=== PATIENT | female | born 1970 ===

== ENCOUNTER → 2021-05-10 | Day surgery (SDC) | payer OTHER ==
[~2021-05-10] MED LIST: ACETAMINOPHEN325 M1 PO; AMPICILLIN SOD 1 GM/NS 50ML 50 ML IV ONE; FISH OIL 1,0001 EAC2 PO; FLONASE ALLERG9.9 ML INH; GENTAMICIN 80MG/NS 100 ML 100 ML IV ONE; METOPROLOL SUCC25 MG PO; MULTI-VITAMIN1 EACH PO; PROAIR HFA INH8.5 GM INH; PROBIOTIC & AC1 EACH PO; SODIUM CHLORIDE 0.9% 50ML 0 ML ONE; VALTREX500 MG PO; ZYRTEC10 M3 PO
[2021-05-10 14:15] VITALS: BP 98/60
== END | disposition home or self-care (01) ==
LOC: OR 11:16
PROVIDERS: ATTEND Colon & Rectal Surgery
DX: K51.919 Ulcerative colitis, unspecified with unspecified complications (principal); Z90.49 Acquired absence of other specified parts of digestive tract; J45.909 Unspecified asthma, uncomplicated; Z20.822 Contact with and (suspected) exposure to COVID-19
CPT/HCPCS: 44388; 88305; J0290; J1580; U0002; 45378